=== PATIENT | male | born 1960 | race African-American/Black ===

== ENCOUNTER 2019-02-24 14:59 | Emergency (ER) | payer OTHER ==
[~2019-02-24] VITALS: Ht 165.1 cm; Wt 99.8 kg
[2019-02-24 15:18] VITALS: BP 155/111
[2019-02-24] MEDS ORDERED: Acetaminophen 500mg (ES) tab ORAL ONE (15:45)
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
[2019-02-24] MEDS ORDERED: ROBAXIN-750750 MG PO (16:39)
[2019-02-24] MEDS ORDERED: IBUPROFEN600 MG ORAL (16:39)
[2019-02-24] MEDS ORDERED: LIDODERM700 M1 TOPIC (16:39)
--- NOTE | 2019-02-24 16:52 | Diagnostic Imaging Report ---
EXAM: XR Lumbar Spine, 2 or 3 Views CLINICAL HISTORY: PAIN TECHNIQUE: Frontal and lateral views of the lumbar spine. COMPARISON: No relevant prior studies available. FINDINGS: Vertebrae: Subtle Schmorl's node along the inferior endplate of L5. There are 5 [id number] lumbar vertebral segments. The lumbar vertebral body heights are preserved. Normal alignment. Disc spaces: No significant narrowing. Soft tissues: Unremarkable. IMPRESSION: Subtle Schmorl's node along the inferior endplate of L5.
[2019-02-24 17:36] VITALS: BP 146/108
== END 2019-02-24 17:38 | disposition home or self-care (01) ==
LOC: EMR 15:35
DX: M54.5 Low back pain (principal); S16.1XXA Strain of muscle, fascia and tendon at neck level, initial encounter; M51.46 Schmorl's nodes, lumbar region; V43.62XA Car passenger injured in collision with other type car in traffic accident, initial encounter; Y92.410 Unspecified street and highway as the place of occurrence of the external cause; I10 Essential (primary) hypertension
CPT/HCPCS: 72020; 99283